=== PATIENT | female | born 1945 | race Caucasian/White ===

== ENCOUNTER 2024-09-03 23:16 | Inpatient (IN) | payer OTHER ==
[~2024-09-03] VITALS: Ht 160 cm; Wt 56.7 kg
[2024-09-04] MEDS: IV NS 1000 ML 1,000 ML IV ONE (00:05)
[2024-09-04 00:11] LABS: BASOPHILS % (AUTO) 0.2 % (0.0-2.0); EOSINOPHILS # (AUTO) 0.5 K/uL (0.0-0.7); EOSINOPHILS % (AUTO) 3.1 % (0.0-7.0); HEMATOCRIT 26.2 % (31.2-41.9); HEMOGLOBIN 8.4 g/dL (10.9-14.3); LYMPHOCYTES # (AUTO) 1.4 K/uL (0.8-4.8); LYMPHOCYTES % (AUTO) 8.4 % (20.5-51.5); MEAN CORPUSCULAR HEMOGLOBIN 34.4 uug (24.7-32.8); MEAN CORPUSCULAR HGB CONC 32 g/dL (32.3-35.6); MEAN CORPUSCULAR VOLUME 107.9 fL (75.5-95.3); MONOCYTES # (AUTO) 0.8 K/uL (0.1-1.30); MONOCYTES % (AUTO) 4.8 % (0.0-11.0); NEUTROPHILS # (AUTO) 13.7 K/uL (1.8-8.9); NEUTROPHILS % (AUTO) 83.5 % (38.5-71.5); PLATELET COUNT (AUTO) 279 K/uL (179-408); WHITE BLOOD COUNT (AUTO) 16.4 K/uL (3.8-11.8)
[2024-09-04 00:20] LABS: RED BLOOD CELL COUNT(AUTO) 2.43 MIL/uL (3.63-4.92)
[2024-09-04 00:21] LABS: DIFFERENTIAL COMMENT 1
[2024-09-04 00:36] LABS: ALANINE AMINOTRANSFERASE 25 U/L (14-59); ALBUMIN 2.4 g/dL (3.4-5.0); ALKALINE PHOSPHATASE 255 U/L (50-136); ASPARTATE AMINOTRANSFERASE 10 U/L (15-37); BILIRUBIN,TOTAL 0.3 mg/dL (0.2-1.0); CALCIUM 10.2 mg/dL (8.5-10.1); CARBON DIOXIDE 23 mmol/L (21-32); CHLORIDE 102 mmol/L (98-107); CREATININE 2.9 mg/dL (0.6-1.3); GLUCOSE 226 mg/dL (74-106); NT-PRO BNP 3631 pg/mL (0-125); POTASSIUM 4.6 mmol/L (3.5-5.1); SODIUM SERUM 135 mmol/L (136-145); TOTAL PROTEIN, SERUM 6.9 g/dL (6.4-8.2); UREA NITROGEN, BLOOD 44 mg/dL (7-18)
[2024-09-04] MEDS ORDERED: CEFTRIAXONE /D5W 50ML IVPB **ER PYXIS IV ONE (04:30)
[2024-09-04] MEDS: CEFTRIAXONE 1 G in IV DEXTROSE 5% 50 ML IV ONE (04:34)
[2024-09-04 04:41] LABS: *BILIRUBIN,URIN NEGATIVE (NEGATIVE); *BLOOD, URINE 2+ (NEGATIVE); *CLARITY,URINE SLIGHTLY CLOUDY (CLEAR); *COLOR,URINE LIGHT YELLOW (YELLOW); *KETONES,URINE NEGATIVE (NEGATIVE); *PROTEIN,URINE 2+ (NEGATIVE); *UROBILINOGEN,URINE 0.2 E.U./dl (NORMAL); LEUKOCYTE ESTERASE ,URINE 3+ (NEGATIVE); NITRITE, URINE NEGATIVE (NEGATIVE); PH,URINE 8.5 (5.0-8.0); UGLUCOSE NEGATIVE (NEGATIVE)
[2024-09-04 05:22] LABS: BACTERIA,URINE FEW /HPF (NONE SEEN); SQUAMOUS EPITHELIAL CELL,UR FEW /HPF (NONE SEEN)
[2024-09-04 05:23] LABS: TRIPLE PHOSPHATE CRYSTAL,UR MANY /HPF (NONE SEEN)
[2024-09-04] MEDS ORDERED: REMEDY ESSENTIAL ZINC PASTE 113 GM TP PRN (05:45)
[2024-09-04] MEDS ORDERED: ONDANSETRON 4 MG/2 ML VIAL IV PRN (05:45)
[2024-09-04] MEDS ORDERED: MAGNESIUM HYDROXIDE 30 ML LIQUID UDC PO PRN (05:45)
[2024-09-04] MEDS ORDERED: ACETAMINOPHEN 325 MG TABLET PO PRN (05:45)
[2024-09-04 08:19] LABS: BASOPHILS % (AUTO) 0.3 % (0.0-2.0); EOSINOPHILS # (AUTO) 0.4 K/uL (0.0-0.7); EOSINOPHILS % (AUTO) 2.8 % (0.0-7.0); HEMATOCRIT 24.3 % (31.2-41.9); LYMPHOCYTES # (AUTO) 1.5 K/uL (0.8-4.8); LYMPHOCYTES % (AUTO) 10.2 % (20.5-51.5); MEAN CORPUSCULAR HEMOGLOBIN 35.4 uug (24.7-32.8); MEAN CORPUSCULAR HGB CONC 33 g/dL (32.3-35.6); MEAN CORPUSCULAR VOLUME 107.1 fL (75.5-95.3); MONOCYTES # (AUTO) 0.7 K/uL (0.1-1.30); MONOCYTES % (AUTO) 4.7 % (0.0-11.0); NEUTROPHILS # (AUTO) 12.2 K/uL (1.8-8.9); PLATELET COUNT (AUTO) 264 K/uL (179-408); RED CELL DISTRIBUTION WIDTH 15.7 % (12.3-17.7); WHITE BLOOD COUNT (AUTO) 14.9 K/uL (3.8-11.8)
[2024-09-04 08:20] LABS: DIFFERENTIAL COMMENT 1; RED BLOOD CELL COUNT(AUTO) 2.27 MIL/uL (3.63-4.92)
[2024-09-04 08:40] LABS: CALCIUM 9.9 mg/dL (8.5-10.1); CARBON DIOXIDE 21 mmol/L (21-32); CHLORIDE 111 mmol/L (98-107); CREATININE 2.6 mg/dL (0.6-1.3); GLUCOSE 81 mg/dL (74-106); MAGNESIUM 1.4 mg/dL (1.8-2.4); PHOSPHOROUS 4.2 mg/dL (2.5-4.9); POTASSIUM 4.9 mmol/L (3.5-5.1); SODIUM SERUM 144 mmol/L (136-145); UREA NITROGEN, BLOOD 41 mg/dL (7-18)
[2024-09-04 09:22] LABS: THYROID STIMULATING HORMONE 0.132 mIU/mL (0.358-3.740)
[2024-09-04 10:00] VITALS: BP 102/54; TEMP 98.8
[2024-09-04] MEDS ORDERED: FURO-152 PO (10:47)
[2024-09-04] MEDS ORDERED: POTA20TA83 PO (10:47)
[2024-09-04] MEDS ORDERED: CALC0.253 PO (10:54)
[2024-09-04] MEDS ORDERED: LACT10SO3 PO (10:54)
[2024-09-04] MEDS ORDERED: HYDR-4209 PO (10:54)
[2024-09-04] MEDS ORDERED: LEVO100T10 PO (10:54)
[2024-09-04] MEDS ORDERED: CYCL5TAB PO (10:54)
[2024-09-04] MEDS ORDERED: TRAZ-182 PO (10:54)
[2024-09-04] MEDS ORDERED: CARV3.122 PO (10:54)
[2024-09-04] MEDS ORDERED: ALLO300T2 PO (10:54)
[2024-09-04] MEDS ORDERED: PANT40TA2 PO (10:54)
[2024-09-04] MEDS ORDERED: TRAZODONE 50 MG TABLET PO PRN (11:30)
[2024-09-04 11:45] VITALS: BP 96/50; TEMP 98.7; O2SAT 98
[2024-09-04 15:44] VITALS: BP 126/59; TEMP 98.1; O2SAT 99
[2024-09-04] MEDS ORDERED: Medication Not On Formulary EA (Lactulose (Duphalac) 10 GM) PO SCH (17:00)
[2024-09-04 17:55] VITALS: BP 122/60; O2SAT 99
[2024-09-04] MEDS: LACTULOSE 20 G/30 ML LIQUID UDC PO SCH (17:56)
[2024-09-04] MEDS: PANTOPRAZOLE SODIUM 40 MG TABLET.DR PO SCH (17:57)
[2024-09-04] MEDS: CARVEDILOL 3.125 MG TABLET PO SCH (17:57)
[2024-09-04 19:57] VITALS: BP 130/58; TEMP 98.1; O2SAT 99
[2024-09-05] VITALS (7 sets, daily range): BP systolic 123–142; BP diastolic 68–90; TEMP 97.1–98.2; O2SAT 97–100
[2024-09-05] MEDS: CEFTRIAXONE 1 G in IV DEXTROSE 5% 50 ML IV SCH (03:49)
[2024-09-05] MEDS: IV NS 1000 ML 1,000 ML IV PRN (03:49)
[2024-09-05 05:34] LABS: *BILIRUBIN,URIN NEGATIVE (NEGATIVE); *CLARITY,URINE CLEAR (CLEAR); *COLOR,URINE YELLOW (YELLOW); *KETONES,URINE NEGATIVE (NEGATIVE); *PROTEIN,URINE 2+ (NEGATIVE); *UROBILINOGEN,URINE 0.2 E.U./dl (NORMAL); LEUKOCYTE ESTERASE ,URINE 3+ (NEGATIVE); NITRITE, URINE NEGATIVE (NEGATIVE); PH,URINE 7.5 (5.0-8.0); UGLUCOSE NEGATIVE (NEGATIVE)
[2024-09-05 05:37] LABS: *CREATININE,URINE 14.2 mg/dL (30-125); *URINE TOTAL PROTEIN RANDOM 66.5 mg/dL (<150/24HR)
[2024-09-05 05:58] LABS: *BLOOD, URINE TRACE (NEGATIVE)
[2024-09-05 05:59] LABS: BACTERIA,URINE FEW /HPF (NONE SEEN); RBC,URINE 0-3 /HPF (0-3)
[2024-09-05 06:00] LABS: SQUAMOUS EPITHELIAL CELL,UR FEW /HPF (NONE SEEN); TRIPLE PHOSPHATE CRYSTAL,UR FEW /HPF (NONE SEEN)
[2024-09-05] MEDS: LEVOTHYROXINE SODIUM 100 MCG TABLET PO SCH (07:00)
[2024-09-05 07:29] LABS: BASOPHILS # (AUTO) 0.1 K/UL (0.0-0.2); BASOPHILS % (AUTO) 0.3 % (0.0-2.0); EOSINOPHILS # (AUTO) 0.8 K/uL (0.0-0.7); EOSINOPHILS % (AUTO) 4.5 % (0.0-7.0); HEMATOCRIT 28.3 % (31.2-41.9); HEMOGLOBIN 8.9 g/dL (10.9-14.3); LYMPHOCYTES # (AUTO) 1.1 K/uL (0.8-4.8); LYMPHOCYTES % (AUTO) 6.8 % (20.5-51.5); MEAN CORPUSCULAR HEMOGLOBIN 33.7 uug (24.7-32.8); MEAN CORPUSCULAR HGB CONC 31 g/dL (32.3-35.6); MEAN CORPUSCULAR VOLUME 107.5 fL (75.5-95.3); MONOCYTES # (AUTO) 0.8 K/uL (0.1-1.30); MONOCYTES % (AUTO) 4.5 % (0.0-11.0); NEUTROPHILS # (AUTO) 14.1 K/uL (1.8-8.9); NEUTROPHILS % (AUTO) 83.9 % (38.5-71.5); PLATELET COUNT (AUTO) 331 K/uL (179-408); RED BLOOD CELL COUNT(AUTO) 2.63 MIL/uL (3.63-4.92); WHITE BLOOD COUNT (AUTO) 16.8 K/uL (3.8-11.8)
[2024-09-05 07:34] LABS: DIFFERENTIAL COMMENT 1
[2024-09-05 08:10] LABS: IRON, SERUM 44 ug/dL (50-175)
[2024-09-05 08:34] LABS: ALANINE AMINOTRANSFERASE 20 U/L (14-59); ALBUMIN 2.4 g/dL (3.4-5.0); ALKALINE PHOSPHATASE 239 U/L (50-136); ASPARTATE AMINOTRANSFERASE 12 U/L (15-37); BILIRUBIN,TOTAL 0.3 mg/dL (0.2-1.0); CALCIUM 10.8 mg/dL (8.5-10.1); CARBON DIOXIDE 20 mmol/L (21-32); CHLORIDE 109 mmol/L (98-107); CREATININE 2.2 mg/dL (0.6-1.3); FERRITIN 2094 ng/mL (8-252); GLUCOSE 133 mg/dL (74-106); MAGNESIUM 1.5 mg/dL (1.8-2.4); PHOSPHOROUS 3.9 mg/dL (2.5-4.9); POTASSIUM 4.4 mmol/L (3.5-5.1); SODIUM SERUM 140 mmol/L (136-145); TOTAL PROTEIN, SERUM 7.1 g/dL (6.4-8.2); UREA NITROGEN, BLOOD 36 mg/dL (7-18)
[2024-09-05] MEDS ORDERED: FUROSEMIDE 20 MG TABLET PO SCH (09:00)
[2024-09-05] MEDS ORDERED: ALLOPURINOL 300 MG TABLET PO SCH (09:00)
[2024-09-05 09:05] LABS: CREATINE KINASE, TOTAL 18 U/L (26-192)
[2024-09-05] MEDS: POTASSIUM CHLORIDE 20 MEQ TAB.PRT.SR PO SCH (09:28)
[2024-09-05] MEDS: ALLOPURINOL 100 MG TABLET PO SCH (09:28)
[2024-09-05] MEDS: CALCITRIOL 0.25 MCG CAPSULE PO SCH (09:33)
[2024-09-05] MEDS: MAGNESIUM OXIDE 400 MG TABLET PO ONE (12:41)
[2024-09-06 12:09] LABS: PTH, INTACT 5 pg/mL (15-65)
[2024-09-09 05:07] LABS: A/G RATIO 0.8 (0.7-1.7); ALBUMIN 2.6 g/dL (2.9-4.4); ALPHA-1-GLOBULIN 0.5 g/dL (0.0-0.4); BETA GLOBULIN 1.1 g/dL (0.7-1.3); GAMMA GLOBULIN 0.9 g/dL (0.4-1.8); GLOBULIN, TOTAL 3.4 g/dL (2.2-3.9); M-SPIKE Not Observed g/dL (Not Observed)
== END 2024-09-05 19:55 | disposition short-term general hospital (02) | DRG 871 ==
LOC: ER 23:16 → TELE-TD3 09-04 09:30 → TELE3 09-04 19:11
PROVIDERS: ATTEND Internal Medicine
PROC: 05HA33Z Insertion of Infusion Device into Left Brachial Vein, Percutaneous Approach (ICD-10-PCS; principal; 2024-09-05)
DX: A41.9 Sepsis, unspecified organism (principal); I21.A1 Myocardial infarction type 2; R53.2 Functional quadriplegia; N39.0 Urinary tract infection, site not specified; N17.9 Acute kidney failure, unspecified; J40 Bronchitis, not specified as acute or chronic; R65.20 Severe sepsis without septic shock; Z95.5 Presence of coronary angioplasty implant and graft; I25.10 Atherosclerotic heart disease of native coronary artery without angina pectoris; Z87.442 Personal history of urinary calculi; Z87.440 Personal history of urinary (tract) infections; Z93.3 Colostomy status; D50.9 Iron deficiency anemia, unspecified; E03.9 Hypothyroidism, unspecified; Z79.890 Hormone replacement therapy; Z93.6 Other artificial openings of urinary tract status; Z86.73 Personal history of transient ischemic attack (TIA), and cerebral infarction without residual deficits; Z87.19 Personal history of other diseases of the digestive system; Z87.39 Personal history of other diseases of the musculoskeletal system and connective tissue; Z74.01 Bed confinement status
CPT/HCPCS: 36415; 71045; 76770; 83550; 83605; 83735; 83970; 84100; 84155; 84165; 84300; 84443; 84484; 85025; 87040; 93307; A4663; G0378; J0696; J7040; J8499